=== PATIENT | female | born 1995 | race Two or more races ===

== ENCOUNTER 2020-01-30 15:39 | Observation (INO) | payer MEDICAID, OTHER ==
[~2020-01-30] VITALS: Ht 157.5 cm; Wt 76.2 kg
[2020-01-30 16:04] VITALS: BP 136/80
[2020-01-30] MEDS ORDERED: PREN-96 PO (17:27)
== END 2020-01-30 17:50 | disposition home or self-care (01) ==
LOC: ER 15:39 → LDRP 16:17
PROVIDERS: ADMIT Obstetrics & Gynecology; ATTEND Obstetrics & Gynecology
DX: O36.8130 Decreased fetal movements, third trimester, not applicable or unspecified (principal); O26.853 Spotting complicating pregnancy, third trimester; Z3A.35 35 weeks gestation of pregnancy
CPT/HCPCS: 59025; 76818; 81002; 99284; G0378